=== PATIENT | female | born 1955 | race Caucasian/White ===

== ENCOUNTER 2017-12-15 13:12 | Inpatient (IN) | payer BC ==
[~2017-12-15] VITALS: Ht 157.5 cm; Wt 78.9 kg
[2017-12-15] VITALS (45 sets, daily range): BP systolic 89–138; BP diastolic 42–90
[2017-12-15] MEDS ORDERED: SODIUM CHLORIDE 0.9% 1000ML 1,000 ML IV STA (13:18)
[2017-12-15] MEDS ORDERED: NITROGLYCERIN/D5W 200 MCG/ML 250 ML IV STA ×2 (13:18→14:19)
[2017-12-15] MEDS ORDERED: NITROGLYCERIN 0.4 MG SUBL ONE (13:27)
[2017-12-15] MEDS ORDERED: PRASUGREL 10 MG TAB PO ONE ×2 (13:30→14:30)
[2017-12-15] MEDS ORDERED: ASPIRIN 325 MG TAB PO ONE ×2 (13:30→14:30)
[2017-12-15] MEDS ORDERED: MORPHINE SULFATE 2 MG/ML SYR ONE ×2 (13:36→13:54)
[2017-12-15] MEDS ORDERED: ONDANSETRON HCL INJ 2 MG/ML VIAL ONE (13:36)
[2017-12-15 13:47] LABS: BASOPHILS # (AUTO) 0.1 (0.0-0.1); BASOPHILS % 0.8 % (0.0-1.0); EOSINOPHILS # (AUTO) 0.2 (0.0-0.4); EOSINOPHILS % 2.7 % (0.0-6.0); HEMATOCRIT 44.6 % (34.2-44.1); HEMOGLOBIN 14.4 g/dL (12.0-16.0); LYMPHOCYTES # (AUTO) 2.8 (1.0-3.2); MEAN CORPUSCULAR HEMOGLOBIN 26.1 pg (28-32); MEAN CORPUSCULAR HGB CONC 32.3 g/dL (31-35); MEAN CORPUSCULAR VOLUME 80.9 fL (81-99); MONOCYTES # (AUTO) 0.7 (0.2-0.8); MONOCYTES % 9.9 % (4.4-11.3); NEUTROPHILS # (AUTO) 3.7 (2.1-6.9); NEUTROPHILS % 49.1 % (38.7-80.0); PLATELET COUNT 239 x10e3/uL (140-360); RED BLOOD COUNT 5.51 x10e6/uL (3.6-5.1); RED CELL DISTRIBUTION WIDTH 14.9 % (11.7-14.4)
[2017-12-15] MEDS ORDERED: HEPARIN SOD (PORCINE) 1000 UNIT/ML 30ML ONE (13:47)
[2017-12-15] MEDS ORDERED: FENTANYL CITRATE/PF 100MCG/2 ML INJ ONE (13:48)
[2017-12-15] MEDS ORDERED: BIVALIRUDIN 250 MG/VIAL IV ONE (13:48)
[2017-12-15] MEDS ORDERED: MIDAZOLAM HCL 2 MG/2 ML VIAL ONE (13:48)
[2017-12-15] MEDS ORDERED: LIDOCAINE HCL 2% LOCAL 20 ML VIAL ONE (13:49)
[2017-12-15] MEDS ORDERED: NITROGLYCERIN/D5W 200 MCG/ML 250 ML ONE (13:49)
[2017-12-15] MEDS ORDERED: HEPARIN SOD/SOD CHLORIDE 2,000 ML ONE (13:49)
[2017-12-15] MEDS ORDERED: SODIUM CHLORIDE 0.9% 1000ML 1,000 ML ONE (13:49)
[2017-12-15] MEDS ORDERED: SODIUM CHLORIDE 0.9% 50ML 0 ML ONE (13:49)
[2017-12-15] MEDS ORDERED: IOPAMIDOL 370 MG/ML 200 ML INFUS..BTL INJ ONE (13:49)
[2017-12-15] MEDS ORDERED: EPTIFIBATIDE 20 ML ONE (13:50)
[2017-12-15] MEDS ORDERED: EPTIFIBATIDE 100 ML ONE (13:51)
[2017-12-15 13:55] LABS: INR 1.08; PROTHROMBIN TIME 13.2 seconds (11.9-14.5)
[2017-12-15 13:56] LABS: PARTIAL THROMBOPLASTIN TIME 19.9 seconds (23.8-35.5)
[2017-12-15 14:05] LABS: ALANINE AMINOTRANSFERASE 57 IU/L (0-55); ALBUMIN 4.3 g/dL (3.5-5.0); ALBUMIN/GLOBULIN RATIO 1.2 (0.8-2.0); ALKALINE PHOSPHATASE 123 IU/L (40-150); ANION GAP 19.4 mmol/L (8-16); BLOOD UREA NITROGEN 15 mg/dL (7-26); BUN/CREATININE RATIO 18 (6-25); CALCIUM 10.6 mg/dL (8.4-10.2); CARBON DIOXIDE 21 mmol/L (22-29); CHLORIDE 105 mmol/L (98-107); CREATINE KINASE 161 IU/L (29-168); CREATININE, SERUM 0.85 mg/dL (0.57-1.11); EST GLOMERULAR FILTRATION RATE > 60 ML/MIN (60-); GLUCOSE 125 mg/dL (74-118); POTASSIUM 3.4 mmol/L (3.5-5.1); SODIUM 142 mmol/L (136-145)
[2017-12-15] MEDS ORDERED: MORPHINE SULFATE INJ 4 MG/ML INJ IV ONE (14:05)
[2017-12-15] MEDS ORDERED: ONDANSETRON HCL INJ 2 MG/ML VIAL IV STA (14:17)
[2017-12-15] MEDS ORDERED: MORPHINE SULFATE 2 MG/ML SYR IV STA (14:17)
--- NOTE | 2017-12-15 14:18 | Diagnostic Imaging Report ---
Examination: Single AP view of the chest. COMPARISON: None. INDICATION: Chest pain and weakness today IMPRESSION: 1. Lines and Tubes: None 2. Lungs are well-inflated. Mild bilateral interstitial prominence extending from the shruti, suggesting mild interstitial edema. No consolidation or effusion. 3. Cardiomediastinal silhouette is normal. Mild central pulmonary venous congestion. 4. No acute bony abnormalities. Metallic clips in the right axillary region. Signed by: Dr. Anastacio De Leon M.D. on 12/15/2017 2:15 PM
[2017-12-15] MEDS ORDERED: NITROGLYCERIN 0.4 MG SUBL SL ONE (14:30)
[2017-12-15] MEDS ORDERED: SODIUM CHLORIDE 0.9% 500ML 500 ML ONE (14:34)
[2017-12-15] MEDS ORDERED: FAMOTIDINE 20 MG TAB PO SCH ×2 (14:45→15:00)
[2017-12-15] MEDS ORDERED: NITROGLYCERIN 0.4 MG SUBL SL PRN ×3 (14:45→15:15)
[2017-12-15] MEDS ORDERED: SODIUM CHLORIDE FLUSH 10 ML SYR INJ PRN ×2 (14:45→15:00)
[2017-12-15] MEDS ORDERED: MORPHINE SULFATE 2 MG/ML SYR IV PRN ×3 (14:45→15:15)
[2017-12-15] MEDS ORDERED: ASPIRIN 81 MG CHEW TAB PO ONE (15:15)
[2017-12-15] MEDS ORDERED: ONDANSETRON HCL INJ 2 MG/ML VIAL IV PRN (15:15)
--- NOTE | 2017-12-15 15:57 | Consultation ---
DATE OF CONSULTATION: December 15, 2017 CARDIOLOGY CONSULTATION INDICATIONS: ST-elevation myocardial infarction. Ms. Augustine is a 62-year-old female with prior history of breast cancer comes in complaining of sudden onset of sweating and left chest pain. She was hypotensive in the emergency room. EKG showed ST-elevation. She has cardiogenic shock with acute anterior ST-elevation myocardial infarction. Following her visit in the emergency room, she was taken emergently to the cardiac geophysical laboratory director for coronary angiography. PAST MEDICAL HISTORY: Breast cancer. SOCIAL HISTORY: Patient does not smoke or drink. ALLERGIES: PENICILLIN. REVIEW OF SYSTEMS: Negative except as dictated in the history of present illness. PHYSICAL EXAMINATION VITALS: Afebrile, heart rate 67, blood pressure is 98/62, O2 sats 98%. CARDIOVASCULAR: Regular rhythm. S3 gallop. No murmurs. LUNGS: Clear to auscultation bilaterally. ABDOMEN: Soft. EXTREMITIES: Pedal pulses 2+. Electrocardiogram was reviewed and shows sinus bradycardia with ST-elevation in the anterior leads. Labs are pending. ASSESSMENT 1. Acute anterior ST-elevation myocardial infarction. 2. Cardiogenic shock. RECOMMENDATIONS: Intravenous fluid bolus along with dopamine for hypotension. Patient will be taken emergently to the cardiac geophysical laboratory director for inotropic support, emergency intervention on the left anterior descending artery, as well as mechanical support for her acute heart failure. Overall prognosis is guarded. I discussed this with the patient's , Dr. Augustine. Overall time spent in the care of this patient is 90 minutes. Job#: [id number] BERTHA
[2017-12-15] MEDS ORDERED: PROMETHAZINE 12.5MG/ NACL 0.9% 12.5 MG/50 ML BAG IV PRN (16:15)
--- NOTE | 2017-12-15 16:19 | Operative Report ---
DATE OF PROCEDURE: December 15, [address]-elevation myocardial infarction. 2. Cardiogenic shock. PROCEDURES PERFORMED 1. Left heart catheterization. 2. Selective coronary angiography. 3. Left ventriculography. 4. Percutaneous transluminal coronary angioplasty and drug-eluting stent placed in the proximal left anterior descending artery. 5. Deployment of right groin intra-aortic balloon pump. COMPLICATIONS: None. RECOMMENDATIONS: Counter pulsations for the next 24-48 hours with assessment of reperfusion. Access was obtained in the right femoral artery. A 6-Turkish sheath was placed. Diagnostic coronary angiogram revealed minimal coronary artery disease in the left anterior descending circumflex and obtuse margin branch. The left anterior descending artery was completely occluded in its proximal portion with REGGIE-0 flow. Right coronary artery had mild 20% stenosis. A decision was made to intervene on the left anterior descending artery. The patient received 10,000 units of intra-arterial heparin and intravenous Integrilin for anticoagulation, as well as oral Effient and aspirin. Left main was cannulated using an XP 3.56-Turkish guiding catheter. A short wire was advanced across the lesion for support. Primary thrombectomy with druze of flow was performed. Total balloon time of 48 minutes. Balloon angioplasty with a 2-mm balloon following which a single 2.5 x 18 mm Resolute Escobar stent was deployed. The proximal portion of the stent was post dilated with a 3 mm noncompliant balloon. Excellent end result. Zero percent stenosis. REGGIE-III flow. No complications. The patient remained hypotensive during the procedure. Intra-aortic balloon pump, 30 mL was deployed into through the right groin sheath, and counter pulsations initiated with excellent augmentation. The sheath and the pump were secured in place. Patient transferred to the ICU in stable condition. Job#: [id number] ND
[2017-12-15] MEDS: HEPARIN 25,000U/0.45% NS 250ML 800 UNIT in SODIUM CHLORIDE 0.9% 250ML 0 ML IV SCH ×2 (16:34→23:11)
[2017-12-15] MEDS: SODIUM CHLORIDE 0.9% IV SCH ×2 (16:37→22:00)
[2017-12-15] MEDS: EPTIFIBATIDE IV SCH ×2 (16:37→22:00)
[2017-12-15] MEDS: METOPROLOL TARTRATE 25 MG TAB PO SCH ×2 (16:43→20:51)
[2017-12-15] MEDS: FAMOTIDINE 20 MG TAB PO SCH (16:49)
[2017-12-15] MEDS: TICAGRELOR 90 MG TABLET PO SCH (18:27)
--- NOTE | 2017-12-15 19:46 | History and Physical ---
REASON FOR ADMISSION: This 62-year-old lady comes in with chest pain. HISTORY OF PRESENT ILLNESS: Ms. Flower Augustine is a 62-year-old female with a history of reflux esophagitis. She was in her usual state of health, and she was waiting for her to finish rounds, Dr. Derian Augustine. The patient had some diaphoresis, chest pain, sweating and left-sided chest pain with radiation to the axilla. She was hypertensive in the emergency room. The patient was admitted to the hospital. EKG showed ST elevation. The patient was admitted and had emergent cardiac cath with stent to the LAD. PAST MEDICAL HISTORY: History of reflux esophagitis, otherwise negative. The patient also has a history of breast cancer, status post right breast lumpectomy with lymph node dissection, also left breast mastectomy as preventative and was biopsied as negative. ALLERGIES: PENICILLIN. REVIEW OF SYSTEMS: Negative for shortness of breath. Positive for diaphoresis. No nausea, vomiting, diarrhea. No constipation or rectal bleeding. No hematochezia or hematemesis. FAMILY HISTORY: Positive strong family history for coronary artery disease in uncle. PHYSICAL EXAMINATION GENERAL: Alert and oriented times 3. VITALS: Right now, the blood pressure is on the lower side. O2 sat is 98%. CARDIOVASCULAR: S1 and S2 normal. S3 present. LUNGS: Clear to auscultation bilaterally. ABDOMEN: Nontender and nondistended. EXTREMITIES: There are 2+ pedal pulses. ASSESSMENT 1. Acute anterior ST-elevation myocardial infarction. 2. Cardiogenic shock. The patient's laboratory values initially were 7.4, hemoglobin 14.4, hematocrit 44.5. Chemistries: Sodium 142, potassium 3.4, BUN 19, creatinine 0.85, total bili 0.6, ALT 57. The patient, as mentioned above, underwent cardiac cath with left heart cath and coronary angiography, and the patient had PTCA and drug-eluting stent placement in the left anterior descending artery. The patient remained hypertensive, so IABP was placed, too. The patient was transferred to the ICU. Dopamine was also started, and Integrilin was started, too. RCA also had 20% stenosis. Further recommendations per clinical course. We will continue to monitor the patient. The patient is, as mentioned, on heparin, Integrilin, aspirin and Effient. We will continue to watch the patient along with cardiology. Needs lipid panel and statin, also. Job#: [id number] HUGH
[2017-12-15] MEDS: ATORVASTATIN 40 MG TAB PO SCH (20:50)
[2017-12-15 23:16] LABS: CREATINE KINASE MB 99.2 ng/mL (0-5.0)
[2017-12-16] VITALS (67 sets, daily range): BP systolic 88–152; BP diastolic 42–103
[2017-12-16 04:44] LABS: BASOPHILS # (AUTO) 0.1 (0.0-0.1); BASOPHILS % 0.6 % (0.0-1.0); EOSINOPHILS % 0.1 % (0.0-6.0); HEMATOCRIT 41.2 % (34.2-44.1); HEMOGLOBIN 13.6 g/dL (12.0-16.0); LYMPHOCYTES # (AUTO) 0.8 (1.0-3.2); LYMPHOCYTES % 9.3 % (18.0-39.1); MEAN CORPUSCULAR HEMOGLOBIN 26.4 pg (28-32); MONOCYTES # (AUTO) 0.6 (0.2-0.8); MONOCYTES % 6.6 % (4.4-11.3); NEUTROPHILS % 83.2 % (38.7-80.0); PLATELET COUNT 212 x10e3/uL (140-360); RED BLOOD COUNT 5.15 x10e6/uL (3.6-5.1); RED CELL DISTRIBUTION WIDTH 14.9 % (11.7-14.4)
[2017-12-16 05:03] LABS: ANION GAP 12.8 mmol/L (8-16); BLOOD UREA NITROGEN 11 mg/dL (7-26); BUN/CREATININE RATIO 16 (6-25); CARBON DIOXIDE 26 mmol/L (22-29); CHLORIDE 100 mmol/L (98-107); CHOL/HDL RATIO 2.8 (3.0-3.6); CHOLESTEROL 234 MD/DL (0-199); CREATININE, SERUM 0.69 mg/dL (0.57-1.11); EST GLOMERULAR FILTRATION RATE > 60 ML/MIN (60-); GLUCOSE 131 mg/dL (74-118); HDL CHOLESTEROL 85 MG/DL (40-60); LDL CHOLESTEROL 139 MG/DL (60-130); POTASSIUM 3.8 mmol/L (3.5-5.1); SODIUM 135 mmol/L (136-145); TRIGLYCERIDES 51 MG/DL (0-149)
[2017-12-16] MEDS: EPTIFIBATIDE IV SCH (05:04)
[2017-12-16] MEDS: SODIUM CHLORIDE 0.9% IV SCH (05:04)
[2017-12-16] MEDS: HEPARIN 25,000U/0.45% NS 250ML 800 UNIT in SODIUM CHLORIDE 0.9% 250ML 0 ML IV SCH (05:05)
[2017-12-16 05:09] LABS: CREATINE KINASE MB 81.7 ng/mL (0-5.0)
[2017-12-16 05:27] LABS: MAGNESIUM 1.9 MG/DL (1.3-2.1); PHOSPHORUS 3.1 MG/DL (2.3-4.7)
[2017-12-16 05:46] LABS: FREE THYROXINE INDEX 2.1207 (1.4-3.8); THYROID STIMULATING HORMONE 0.342 uIU/mL (0.350-4.940)
[2017-12-16] MEDS ORDERED: FENTANYL CITRATE/PF 100MCG/2 ML INJ ONE (08:29)
[2017-12-16] MEDS ORDERED: FENTANYL CITRATE/PF 100MCG/2 ML INJ IV ONE (08:30)
[2017-12-16] MEDS ORDERED: ASPIRIN 81 MG ENTERIC COATED PO SCH ×2 (09:00)
[2017-12-16] MEDS: ASPIRIN 81 MG ENTERIC COATED PO SCH (09:20)
[2017-12-16] MEDS: FAMOTIDINE 20 MG TAB PO SCH ×2 (09:20→16:35)
[2017-12-16] MEDS: TICAGRELOR 90 MG TABLET PO SCH ×2 (09:20→16:35)
[2017-12-16] MEDS: LISINOPRIL 10 MG TAB PO SCH ×2 (09:20→09:30)
[2017-12-16] MEDS: METOPROLOL TARTRATE 25 MG TAB PO SCH ×2 (09:20→20:58)
--- NOTE | 2017-12-16 10:00 | Operative Report ---
DATE OF PROCEDURE: December 16, 2017 PROCEDURE PERFORMED: Removal of intra-aortic balloon pump. COMPLICATIONS: None. BLOOD LOSS: 10 mL. RECOMMENDATIONS: Manual pressure for 40 minutes followed by bed rest for 6 hours. The balloon pump was maintained on minimal support, 1-3 augmentation. Patient received 50 mcg of fentanyl for analgesia. The balloon pump as well as the 8.5-Guatemalan sheath was removed. Manual pressure applied. No hematoma. Hemostasis obtained in 40 minutes. Site was dressed. Bed rest was maintained. Job#: [id number] ND
--- NOTE | 2017-12-16 10:04 | Progress Note ---
DATE: December 16, 2017 CARDIOLOGY PROGRESS NOTE SUBJECTIVE: Ms. Augustine has no further chest pain. Her intra-aortic balloon pump was removed. PHYSICAL EXAMINATION: VITAL SIGNS: Afebrile, heart rate 74, blood pressure 114/77, O2 sat is 98%. CARDIOVASCULAR: Regular rhythm. S3 gallop. No murmurs. LUNGS: Clear to auscultation bilaterally. ABDOMEN: Soft. Bowel sounds heard adequately. Right groin is soft without hematoma. LABS: Hemoglobin is 13.6. Serum creatinine is 0.69. LDL 139. ASSESSMENT: ST-elevation myocardial infarction. RECOMMENDATIONS: The patient is on dual antiplatelet therapy. She admits some minimal hematemesis while on heparin and Integrilin. These have been discontinued. Optimal medical therapy for myocardial infarction has been initiated. Echocardiogram is pending. The patient will be stable for discharge in the next 24 to 48 hours. Job#: [id number]
[2017-12-16 12:51] LABS: CREATINE KINASE MB 39.4 ng/mL (0-5.0)
[2017-12-16] MEDS: ATORVASTATIN 40 MG TAB PO SCH (20:57)
[2017-12-17] VITALS (21 sets, daily range): BP systolic 77–137; BP diastolic 53–81
[2017-12-17] MEDS: FAMOTIDINE 20 MG TAB PO SCH ×2 (07:30→16:57)
[2017-12-17 07:39] LABS: BASOPHILS % 0.5 % (0.0-1.0); EOSINOPHILS # (AUTO) 0.2 (0.0-0.4); EOSINOPHILS % 2.5 % (0.0-6.0); HEMATOCRIT 41.7 % (34.2-44.1); HEMOGLOBIN 13.6 g/dL (12.0-16.0); LYMPHOCYTES # (AUTO) 1.4 (1.0-3.2); LYMPHOCYTES % 21.6 % (18.0-39.1); MEAN CORPUSCULAR HEMOGLOBIN 26.6 pg (28-32); MEAN CORPUSCULAR HGB CONC 32.6 g/dL (31-35); MEAN CORPUSCULAR VOLUME 81.6 fL (81-99); MONOCYTES # (AUTO) 0.8 (0.2-0.8); MONOCYTES % 11.6 % (4.4-11.3); NEUTROPHILS # (AUTO) 4.1 (2.1-6.9); NEUTROPHILS % 63.6 % (38.7-80.0); PLATELET COUNT 158 x10e3/uL (140-360); RED BLOOD COUNT 5.11 x10e6/uL (3.6-5.1); RED CELL DISTRIBUTION WIDTH 14.9 % (11.7-14.4)
[2017-12-17 07:55] LABS: ANION GAP 12.7 mmol/L (8-16); BLOOD UREA NITROGEN 15 mg/dL (7-26); BUN/CREATININE RATIO 21 (6-25); CALCIUM 9.5 mg/dL (8.4-10.2); CARBON DIOXIDE 26 mmol/L (22-29); CHLORIDE 103 mmol/L (98-107); CREATININE, SERUM 0.73 mg/dL (0.57-1.11); EST GLOMERULAR FILTRATION RATE > 60 ML/MIN (60-); GLUCOSE 94 mg/dL (74-118); POTASSIUM 3.7 mmol/L (3.5-5.1); SODIUM 138 mmol/L (136-145)
[2017-12-17] MEDS: ASPIRIN 81 MG ENTERIC COATED PO SCH (09:00)
[2017-12-17] MEDS: METOPROLOL TARTRATE 25 MG TAB PO SCH ×2 (10:52→21:49)
[2017-12-17] MEDS: TICAGRELOR 90 MG TABLET PO SCH ×2 (10:52→16:57)
[2017-12-17] MEDS: LOSARTAN POTASSIUM 100 MG TAB PO SCH (12:57)
[2017-12-17] MEDS: ATORVASTATIN 40 MG TAB PO SCH (21:49)
--- NOTE | 2017-12-17 23:59 | Progress Note ---
DATE: December 17, 2017 CARDIOLOGY PROGRESS NOTE SUBJECTIVE: Patient denies chest pain or shortness of breath. She has not had any further bleeding from her right groin site. OBJECTIVE VITAL SIGNS: Temperature 97.9 degrees, pulse 108, respiratory rate 19, blood pressure 99/74, oxygen saturation 99% on 2 L nasal cannula. GENERAL: Awake, alert, in no acute distress. LUNGS: Clear to auscultation bilaterally. No wheezes or crackles. CARDIOVASCULAR: Normal rate. Regular rhythm. No murmur. Normal S1/S2. ABDOMEN: Soft, nontender. EXTREMITIES: No edema. Right groin with pressure dressing in place. No hematoma or bruit appreciated. CARDIAC MEDICATIONS 1. Losartan 50 mg p.o. daily. 2. Metoprolol 25 mg p.o. q.12 h. 3. Aspirin 81 mg p.o. daily. 4. Atorvastatin 40 mg p.o. nightly. 5. Ticagrelor 90 mg p.o. b.i.d. LABS: WBC 6.44, hemoglobin 13.6, hematocrit 41.7, platelets 158,000. Sodium 138, potassium 3.7, chloride 103, CO2 26, BUN 15, creatinine 0.73. TELEMETRY: Normal sinus rhythm. IMPRESSIONS 1. Acute anterior ST-elevation myocardial infarction. 2. Cardiogenic shock, status post intra-aortic balloon pump support, now removed. 3. Acute systolic heart failure. 4. History of breast cancer, status post right breast lumpectomy with lymph node dissection, and left breast mastectomy. RECOMMENDATIONS: Patient may be transferred out of the ICU. Continue current cardiac medication. She is on therapy for her acute systolic heart failure. Plan to transition to metoprolol succinate upon discharge. Check BNP. Monitor telemetry while admitted. Monitor blood pressure closely. Likely discharge home tomorrow. Thank you for this consult. We will continue to follow. Job#: [id number] CQ
[2017-12-18] VITALS: BP 100/56
[2017-12-18 04:00] VITALS: BP 107/67
[2017-12-18] MEDS ORDERED: BISACODYL 5 MG TAB EC PO PRN (07:45)
[2017-12-18 08:25] VITALS: BP 112/59
[2017-12-18] MEDS: TICAGRELOR 90 MG TABLET PO SCH (08:30)
[2017-12-18] MEDS: ASPIRIN 81 MG ENTERIC COATED PO SCH (08:30)
[2017-12-18] MEDS: LOSARTAN POTASSIUM 100 MG TAB PO SCH (08:30)
[2017-12-18] MEDS: FAMOTIDINE 20 MG TAB PO SCH (08:30)
[2017-12-18] MEDS ORDERED: METOPROLOL SUCCINATE 50 MG TAB XL PO SCH (10:45)
[2017-12-18] MEDS ORDERED: METOPROLOL SUCC50 MG PO (11:10)
[2017-12-18] MEDS ORDERED: ATORVASTATIN CA20 MG PO (11:11)
[2017-12-18] MEDS ORDERED: BRILINTA90 MG PO (11:22)
[2017-12-18] MEDS ORDERED: LOSARTAN POTASS25 MG PO (11:22)
--- NOTE | 2017-12-18 11:50 | Progress Note ---
DATE: December 18, 2017 CARDIOLOGY PROGRESS NOTE SUBJECTIVE: Patient reports she is feeling well. She walks in the hallway without symptoms. Denies chest pain or shortness of breath. OBJECTIVE VITAL SIGNS: Temperature 98.8 degrees, pulse 79, respiratory rate 16, blood pressure 112/59, and oxygen saturation 96% on 2 L nasal cannula. GENERAL: Awake, alert, in no acute distress. LUNGS: Clear to auscultation bilaterally. No wheezes or crackles. CARDIOVASCULAR: Normal rate, regular rhythm. No murmur. Normal S1 and S2. ABDOMEN: Soft and nontender. EXTREMITIES: No edema. CARDIAC MEDICATIONS 1. Metoprolol 25 mg p.o. q.12 hours. 2. Atorvastatin 40 mg p.o. nightly. 3. Losartan 50 mg p.o. daily. 4. Aspirin 81 mg p.o. daily. 5. Ticagrelor 90 mg p.o. b.i.d. LABS: BNP 144. TELEMETRY: Sinus tachycardia, sinus rhythm. IMPRESSION 1. Acute anterior ST-elevation myocardial infarction. 2. Cardiogenic shock, status post intra-aortic balloon pump support, now removed. 3. Acute systolic heart failure. 4. History of breast cancer, status post right breast lumpectomy with lymph node dissection and left breast mastectomy. RECOMMENDATIONS: Titrate up metoprolol. Continue current cardiac medications. Otherwise, she is on appropriate therapy for her systolic heart failure and prescriptions have been given. Keep patient on telemetry while admitted. Please have patient follow up with Dr. Edward in 2 weeks. Thank you for this consult. We will continue to follow. Job#: [id number]
[2017-12-18 12:43] VITALS: BP 124/73
== END 2017-12-18 13:07 | disposition home or self-care (01) | DRG 270 ==
LOC: ER 13:12 → ICU 15:34 → MED/SURG3 12-17 18:03
PROVIDERS: ADMIT Family Medicine; ATTEND Family Medicine
PROC: 4A023N7 Measurement of Cardiac Sampling and Pressure, Left Heart, Percutaneous Approach (ICD-10-PCS; principal; 2017-12-15)
PROC: 5A02210 Assistance with Cardiac Output using Balloon Pump, Continuous (ICD-10-PCS; 2017-12-15)
PROC: 02703ZZ Dilation of Coronary Artery, One Artery, Percutaneous Approach (ICD-10-PCS; 2017-12-15)
PROC: 027034Z Dilation of Coronary Artery, One Artery with Drug-eluting Intraluminal Device, Percutaneous Approach (ICD-10-PCS; 2017-12-15)
PROC: B215YZZ Fluoroscopy of Left Heart using Other Contrast (ICD-10-PCS; 2017-12-15)
DX: I21.09 ST elevation (STEMI) myocardial infarction involving other coronary artery of anterior wall (principal); R57.0 Cardiogenic shock; I50.21 Acute systolic (congestive) heart failure; I11.0 Hypertensive heart disease with heart failure; Z85.3 Personal history of malignant neoplasm of breast; Z90.11 Acquired absence of right breast and nipple
CPT/HCPCS: 33967; 36415; 37211; 71045; 80048; 80053; 80061; 82550; 82553; 83735; 83880; 84100; 84436; 84443; 84479; 84484; 85025; 85347; 85610; 85730; 92928; 93005; 93306; 93458; 96361; 99284; J0583; J1327; J1644; J2001; J2250; J2270; J2405; J7030; J7040; J7050; Q9967

== ENCOUNTER → 2019-02-20 | Day surgery (SDC) | payer BC ==
[2019-02-19 11:29] LABS: EOSINOPHILS # (AUTO) 0.1 (0.0-0.4); EOSINOPHILS % 3.2 % (0.0-6.0); HEMATOCRIT 40.5 % (34.2-44.1); HEMOGLOBIN 13.1 g/dL (12.0-16.0); LYMPHOCYTES # (AUTO) 0.8 (1.0-3.2); LYMPHOCYTES % 18.3 % (18.0-39.1); MEAN CORPUSCULAR HEMOGLOBIN 27.2 pg (28-32); MEAN CORPUSCULAR HGB CONC 32.3 g/dL (31-35); MEAN CORPUSCULAR VOLUME 84.2 fL (81-99); MONOCYTES # (AUTO) 0.4 (0.2-0.8); MONOCYTES % 10.5 % (4.4-11.3); NEUTROPHILS # (AUTO) 2.7 (2.1-6.9); NEUTROPHILS % 66.8 % (38.7-80.0); PLATELET COUNT 162 x10e3/uL (140-360); RED BLOOD COUNT 4.81 x10e6/uL (3.6-5.1)
[2019-02-19 12:03] LABS: ALANINE AMINOTRANSFERASE 37 IU/L (0-55); ALBUMIN/GLOBULIN RATIO 1.3 (0.8-2.0); ALKALINE PHOSPHATASE 123 IU/L (40-150); ANION GAP 11.1 mmol/L (8-16); BLOOD UREA NITROGEN 17 mg/dL (7-26); BUN/CREATININE RATIO 20 (6-25); CARBON DIOXIDE 29 mmol/L (22-29); CHLORIDE 102 mmol/L (98-107); CREATININE, SERUM 0.85 mg/dL (0.57-1.11); EST GLOMERULAR FILTRATION RATE > 60 ML/MIN (60-); GLUCOSE 97 mg/dL (74-118); POTASSIUM 4.1 mmol/L (3.5-5.1); SODIUM 138 mmol/L (136-145)
[~2019-02-20] VITALS: Ht 157.5 cm; Wt 62.1 kg
[~2019-02-20] MED LIST: ALPRAZOLAM 0.5 MG TAB ONE; ASPIR 8181 MG PO; ATORVASTATIN CA20 MG PO; BRILINTA90 MG PO; DIPHENHYDRAMINE HCL 25 MG CAP ONE; FENTANYL CITRATE/PF 100MCG/2 ML INJ ONE; HEPARIN SOD (PORCINE) 1000 UNIT/ML 30ML ONE; HEPARIN SOD/SOD CHLORIDE 2,000 ML ONE; IOPAMIDOL 370 MG/ML 200 ML INFUS..BTL INJ ONE; LIDOCAINE HCL 2% LOCAL 20 ML VIAL ONE; LOSARTAN POTASS25 MG PO; METOPROLOL SUCC50 MG PO; METOPROLOL TART25 MG PO; METRONIDAZOLE500 MG PO; MIDAZOLAM HCL 2 MG/2 ML VIAL ONE; SODIUM CHLORIDE 0.9% 1000ML 0 ML ONE; SODIUM CHLORIDE 0.9% 1000ML 1,000 ML ONE; VERAPAMIL HCL 2.5 MG/ML 2 ML VIAL ONE
[2019-02-20 11:30] VITALS: BP 118/77
--- OUTSIDE RECORDS SUMMARY | 2019-02-20 11:53 | XMS REPORT ---
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 Allergies, Adverse Reactions, Alerts This patient has no known allergies or adverse reactions. Medications This patient has no known medications. Results Test Description Test Time Test Comments Text Results Atomic Results Result Comments CHEST SINGLE (PORTABLE) 2017-12-15 14:14:00 [place] [id number] Patient Name: HANNA SLADE MR #: [id number] : 1955 Age/Sex: 62/F Req #: [id number] Adm Physician: Ordered by: KARENA BARAJAS MD Report #: [id number] Location: ER Room/Bed: Procedure: [id number] DX/CHEST SINGLE (PORTABLE) Exam Date: 12/15/17 Exam Time: 1330 REPORT STATUS: Signed Examination: Single AP view of the chest. COMPARISON: None. INDICATION: Chest pain and weakness today IMPRESSION: 1. Lines and Tubes: None 2. Lungs are well-inflated. Mild bilateral interstitial prominence extending from the shruti, suggesting mild interstitial edema. No consolidation or effusion. 3. Cardiomediastinal silhouette is normal. Mild central pulmonary venous congestion. 4. No acute bony abnormalities. Metallic clips in the right axillary region. Signed by: Dr. Nesha Novak M.D. on 12/15/2017 2:15 PM Dictated By: NESHA NOVAK MD [id number] Transcribed By: JEAN MARIE on 12/15/17 141 COPY TO: KARENA BARAJAS MD
[2019-02-20 12:01] VITALS: BP 131/70
--- NOTE | 2019-02-20 13:30 | NUR ---
1330 Received pt to room #9,bedside report received from Mike RUBIO. Alert oriented and appropriate, PERRLA, respirations even and unlabored to room air. Pulses x4 extremities equal and strong. Pedal pulses PT/DP X4 and marked. Cap fill brisk < 3 sec. Rt Mynx site dry and intact. Skin warm and dry integrity appears D/I. IV 20g to arm presents healthy w/o s/s of infiltration or complaint. Abdomen soft and supple. pt offered toileting, denies need to urinate or defecate. No personal affects with patient. Family at bedside. Pt and family verbalizes understanding of POC. Currently w/o complaint of pain or need. ds/rn
[2019-02-20 13:45] VITALS: BP 118/71
[2019-02-20 14:00] VITALS: BP 122/72
[2019-02-20 14:30] VITALS: BP 121/77
[2019-02-20 15:00] VITALS: BP 123/77
--- NOTE | 2019-02-20 15:00 | NUR ---
1500 Pt meets DC criteria. Rt Mynx assessed for s/s of complication and presence of hematoma. Skin warm, dry, no discolor, and pulses present. IV removed from left arm Distal tip appears intact. VS WNL. Pt denies pain, sob, or need at this time. Family . Review of discharge paperwork and follow up instructions. verbalized understanding. Pt to wheelchair and transported to front of hospital. Transferred to private vehicle under own strength w/o incident with DC paperwork in hand. - ds/rn
--- NOTE | 2019-02-20 18:58 | Operative Report ---
DATE OF PROCEDURE: 02/20/2019 SURGEON: Carlos Manuel Roberts MD INDICATIONS: Coronary artery disease and abnormal stress test. PROCEDURES PERFORMED: 1. Left heart catheterization, selective coronary angiography. 2. Deployment of right groin Mynx closure device. COMPLICATIONS: None. RECOMMENDATIONS: Medical therapy. DESCRIPTION OF PROCEDURE: Access obtained in the right femoral artery. A 6-Syriac sheath was placed. Coronary angiography demonstrated patent left main. Stent in the proximal left anterior descending artery is widely patent. Ostial diagonal 50% stenosis. Circumflex and remaining left anterior descending arteries had mild 10% to 20% stenosis. Right coronary artery, mid 30% to 50% plaque with excellent flow. No critical stenosis or occlusions. No intervention was deemed necessary. LV end-diastolic pressure of 15. No gradient across the aortic valve on pullback. Right groin repaired using Mynx closure device. The patient was discharged home the same day. Carlos Manuel Roberts MD KSB/MODL /[id number]
== END | disposition home or self-care (01) ==
LOC: CATH LAB 11:06
PROVIDERS: ATTEND Internal Medicine Interventional Cardiology
DX: I25.118 Atherosclerotic heart disease of native coronary artery with other forms of angina pectoris (principal); R94.39 Abnormal result of other cardiovascular function study; I87.2 Venous insufficiency (chronic) (peripheral); I25.2 Old myocardial infarction; E78.00 Pure hypercholesterolemia, unspecified; I10 Essential (primary) hypertension; Z88.0 Allergy status to penicillin; Z01.812 Encounter for preprocedural laboratory examination; Z79.82 Long term (current) use of aspirin; Z86.718 Personal history of other venous thrombosis and embolism; Z95.5 Presence of coronary angioplasty implant and graft; Z82.49 Family history of ischemic heart disease and other diseases of the circulatory system; Z82.3 Family history of stroke
CPT/HCPCS: 36415; 80053; 85025; 93458; C1760; C1769; J2001; J2250; J3010; J7030; Q9967; 99152; J1644